=== PATIENT | male | born 2000 ===

== ENCOUNTER 2022-08-10 12:36 | Emergency (ER) | payer SELFPAY ==
[~2022-08-10] VITALS: Ht 167.6 cm; Wt 81.7 kg
[2022-08-10 12:39] VITALS: BP 132/73
== END 2022-08-10 13:54 | disposition left against medical advice (07) ==
LOC: M ED 12:36
DX: Z53.21 Procedure and treatment not carried out due to patient leaving prior to being seen by health care provider (principal)